=== PATIENT | female | born 1955 | race Native Hawaiian/Other Pacific Islander ===

== ENCOUNTER 2016-09-26 15:35 | Outpatient (CLI) | payer BC ==
[~2016-09-26 15:35] MED LIST: ALPR1TAB61 PO; MECL25TA84 PO; METO50TA27 PO; ORAPRED ODT10 MG OR; TRIA37.541 PO; Z-PAK PO
== END 2016-09-26 19:11 | disposition home or self-care (01) ==
LOC: RAD 15:35
DX: J40 Bronchitis, not specified as acute or chronic (principal)